=== PATIENT | male | born 1960 | race Caucasian/White ===

== ENCOUNTER 2019-12-07 11:33 | Emergency (ER) | payer BC ==
[~2019-12-07] VITALS: Ht 170.2 cm; Wt 86.4 kg
[2019-12-07] MEDS ORDERED: bacitracin 15gm ointment TP ONE (11:45)
[2019-12-07] MEDS ORDERED: etomidate 2mg/ml inj. IV ONE (11:45)
[2019-12-07] MEDS ORDERED: LIDOcaine 1% W/epiNEPHrine 1:200,000 10ml vial IJ ONE (11:45)
[2019-12-07] MEDS ORDERED: ondansetron/PF 4mg/2ml inj IV ONE (11:45)
[2019-12-07] MEDS ORDERED: fentaNYL/PF 50MCG/1 ML 2ML syringe IV ONE (11:45)
[2019-12-07] MEDS ORDERED: ceFAZolin 1000mg inj IV ONE (12:15)
[2019-12-07] MEDS ORDERED: CEPH-572 PO (12:17)
[2019-12-07] MEDS ORDERED: HYDR-3965 PO (12:17)
[2019-12-07] MEDS ORDERED: ONDA4TAB6 PO (12:17)
[2019-12-07] MEDS ORDERED: cefazolin/dext.iso 2gm/50ml 50 ML IV ONE (12:20)
--- NOTE | 2019-12-07 12:39 | NUR ---
Camilla Simpson [phone]
[2019-12-07 13:49] VITALS: BP 126/81
== END 2019-12-07 13:50 | disposition home or self-care (01) ==
LOC: ER 11:34
DX: S06.0X0A Concussion without loss of consciousness, initial encounter (principal); S43.004A Unspecified dislocation of right shoulder joint, initial encounter; S01.81XA Laceration without foreign body of other part of head, initial encounter; S41.112A Laceration without foreign body of left upper arm, initial encounter; G89.29 Other chronic pain; Z98.890 Other specified postprocedural states; Z79.2 Long term (current) use of antibiotics; Z79.899 Other long term (current) drug therapy; W18.31XA Fall on same level due to stepping on an object, initial encounter; Y93.89 Activity, other specified; Y92.89 Other specified places as the place of occurrence of the external cause; Y99.8 Other external cause status
CPT/HCPCS: 12011; 12034; 23650; 73020; 96365; 99285; J2405; J3010